=== PATIENT | female | born 1990 | race Caucasian/White ===

== ENCOUNTER 2017-01-22 20:44 | Emergency (ER) | payer MEDICAID ==
[~2017-01-22 20:44] MED LIST: OMEPRAZOLE20 M3 PO; PENICILLIN V P250 M1 PO
[2017-01-22] MEDS ORDERED: VISTARIL25 M1 PO (21:15)
[2017-01-22] MEDS ORDERED: TRIAMCINOLONE A15 G2 TP (21:58)
== END 2017-01-22 22:10 ==
LOC: EDMED 20:44
DX: L30.9 Dermatitis, unspecified (principal); F17.200 Nicotine dependence, unspecified, uncomplicated; Z88.8 Allergy status to other drugs, medicaments and biological substances